=== PATIENT | male | born 1975 | race Caucasian/White ===

== ENCOUNTER 2016-08-28 10:32 | Emergency (ER) | payer OTHER ==
[~2016-08-28] VITALS: Ht 167.6 cm; Wt 65.0 kg
[2016-08-28 10:32] VITALS: Ht 167.6 cm; Wt 65.0 kg
[2016-08-28 11:37] LABS: BASOPHILS % 0.6 % (0.0-2.0); EOSINOPHILS # 0.2 10^3/ul (0.0-0.5); EOSINOPHILS % 3.4 % (0.0-7.0); HEMATOCRIT 45.9 % (42.0-52.0); HEMOGLOBIN 15.6 g/dl (14.0-18.0); LYMPHOCYTES # 2.4 10^3/ul (0.8-2.9); LYMPHOCYTES % 39.6 % (15.0-51.0); MEAN CORPUSCULAR HEMOGLOBIN 32.6 pg (29.0-33.0); MEAN CORPUSCULAR VOLUME 96.1 fl (82.0-101.0); MONOCYTE # 0.5 10^3/ul (0.3-0.9); MONOCYTES % 7.6 % (0.0-11.0); NEUTROPHIL # 2.9 10^3/ul (1.6-7.5); NEUTROPHILS % 48.8 % (39.0-77.0); PLATELET COUNT 329 10^3/UL (140-440); RED BLOOD COUNT 4.77 10^6/ul (4.70-6.10); RED CELL DISTRIBUTION WIDTH 14.6 % (11.5-14.5)
[2016-08-28 11:39] LABS: CONDITION 1; LH ANALYZER COMMENTS 1
[2016-08-28 11:44] LABS: ALBUMIN 4.4 g/dl (3.3-4.9)
[2016-08-28 11:46] LABS: BILIRUBIN,INDIRECT 0.2 mg/dl (0-1.1); BILIRUBIN,TOTAL 0.2 mg/dl (0.2-1.3); CREATININE 0.79 mg/dl (0.61-1.24)
[2016-08-28 11:47] LABS: ALBUMIN/GLOBULIN RATIO 1.1; CALCIUM 8.6 mg/dl (8.4-10.2); TOTAL PROTEIN 8.4 g/dl (6.1-8.1)
[2016-08-28] MEDS ORDERED: PHENYTOIN 1,000 MG in SOD CHLORIDE 0.9% 100 ML IV ONE (12:30)
--- NOTE | 2016-08-28 13:29 | ERD ---
ER Documentation Chief Complaint Date/Time DATE: 08/28/16 TIME: 1045 Chief Complaint Patient MICHELLE with complant of ETOH use HPI 41-year-old male presents to the emergency department by ambulance. Patient is a poor historian as he appears to be intoxicated. According to the ambulance, patient had a witnessed grand mal seizure that was self-limited with no trauma. Patient states that instead of taking his antiseizure medications, he has been drinking alcohol. He has no other complaints at this time including no complaints of headache or focal weakness or difficulty speaking. 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 Pre-hospital vital signs were reviewed. Pre-hospital diagnostic tests were reviewed. ROS All systems reviewed and are negative except as per history of present illness. Medications Home Meds Active Scripts Phenytoin* Sodium Extended (Dilantin*) 300 Mg Capsule, 300 MG PO HS, #90 CAP Prov:PHYLLIS REEDER 08/28/16 Allergies Allergies: Coded Allergies: Unable to Assess (Verified Allergy, Severe, 08/28/16) FmHx Noncontributory for chief complaint Physical Exam Vitals Vital Signs Date Time Temp Pulse Resp B/P Pulse Ox O2 Delivery O2 Flow Rate FiO2 08/28/16 10:32 98.3 80 20 125/79 99 Physical Exam GENERAL: The patient is well developed and appropriate for usual state of health in no apparent distress, patient is intoxicated with alcohol HEENT: Pupils equal, round, and reactive to light. EOMI. There is no scleral icterus. NECK: C-spine is soft and supple, there is no meningismus. There is no cervical lymphadenopathy. LUNGS: Clear to auscultation bilaterally. There are no rales, wheezes or rhonchi. HEART: Regular rate and rhythm, no murmurs, clicks, rubs or gallops. ABDOMEN: Soft, non-tender, non-distended. There are bowel sounds in all four quadrants. No rebound or guarding. EXTREMITIES: There is no peripheral cyanosis or edema. No focal swelling or erythema. NEURO: The patient moves all four extremities with 5/5 strength. Cranial nerves II - XII are intact. Normal gait. Alert and oriented, slurred speech SKIN: There is no apparent rash or petechiae. HEME/LYMPHATIC: There is no evidence of excessive bruising or lymphedema. PSYCHIATRIC: The patient does not appear anxious or depressed. Result Diagram: 08/28/16 1130 08/28/16 1130 Results 24 hrs Laboratory Tests Test 08/28/16 11:30 Alanine Aminotransferase (ALT/SGPT) 170IU/L Albumin 4.4g/dl Albumin/Globulin Ratio 1.10 Alkaline Phosphatase 75IU/L Anion Gap 22 Aspartate Amino Transf (AST/SGOT) 129IU/L Basophils # 0.010^3/ul Basophils % 0.6% Blood Morphology Comment Blood Urea Nitrogen 9mg/dl Calcium Level 8.6mg/dl Carbon Dioxide Level 25mmol/L Chloride Level 109mmol/L Creatinine 0.79mg/dl Direct Bilirubin 0.00mg/dl Eosinophils # 0.210^3/ul Eosinophils % 3.4% Ethyl Alcohol Level 443.0mg/dl Globulin 4.00g/dl Glucose Level 90mg/dl Hematocrit 45.9% Hemoglobin 15.6g/dl Indirect Bilirubin 0.2mg/dl Lymphocytes # 2.410^3/ul Lymphocytes % 39.6% Mean Corpuscular Hemoglobin 32.6pg Mean Corpuscular Hemoglobin Concent 34.0g/dl Mean Corpuscular Volume 96.1fl Mean Platelet Volume 7.0fl Monocytes # 0.510^3/ul Monocytes % 7.6% Neutrophils # 2.910^3/ul Neutrophils % 48.8% Nucleated Red Blood Cells # 0.010^3/ul Nucleated Red Blood Cells % 0.0/100WBC Phenytoin (Dilantin) Level < 3.0ug/ml Platelet Count 04991^3/UL Potassium Level 4.0mmol/L Red Blood Count 4.7710^6/ul Red Cell Distribution Width 14.6% Sodium Level 152mmol/L Total Bilirubin 0.2mg/dl Total Protein 8.4g/dl White Blood Count 6.010^3/ul Current Medications Medications (Trade) Dose Ordered Sig/Roger Route PRN Reason Start Time Stop Time Status Last Admin Dose Admin Phenytoin 1000 mg/ Sodium Chloride 120 ml @ 240 mls/hr ONCE ONCE IV 08/28/16 12:30 08/28/16 12:59 DC 08/28/16 13:02 Sodium Chloride (NS) 500 ml @ 500 mls/hr Q1H ONCE IV 08/28/16 13:30 08/28/16 14:29 08/28/16 13:08 Procedures/MDM Patient was taken to a room, seen and evaluated. Comfort measures were initiated. Diagnostic tests were ordered and reviewed. 3 LEAD RHYTHM STRIP: [Normal sinus rhythm without ectopy] REEVALUATION: Patient remains seizure-free. After the patient's Dilantin level was noted to be negative, he was loaded with a gram of IV Dilantin. He remained hemodynamically stable. MEDICAL DECISION MAKIN-year-old male presents the emergency department after questionable seizure. At this time, his seizure seems to be related to noncompliance with seizure medications and more importantly is a significant alcohol intoxication. At this time, he demonstrates no signs of trauma. Patient will be maintained under observation until such time as he is sober enough for safe discharge can be arranged. Currently however he is comfortable , hemodynamically stable and will be maintained under observation. Departure Diagnosis: Primary Impression: Alcoholic intoxication Condition: Stable Patient Instructions: Alcohol Intoxication Additional Instructions: Stop drinking alcohol. Take your seizure medication PHYLLIS REEDER Aug 28, 2016 13:29
[2016-08-28] MEDS ORDERED: SOD CHLORIDE 0.9% 500 ML IV ONE (13:30)
[2016-08-28] MEDS ORDERED: PHEN300C2 PO (13:30)
[2016-08-28 14:29] VITALS: BP 136/74; PULSE 86; RESP 20; TEMP 98.3
== END 2016-08-28 13:28 | disposition home or self-care (01) ==
LOC: E/R 10:32
DX: F10.129 Alcohol abuse with intoxication, unspecified (principal); R40.2142 Coma scale, eyes open, spontaneous, at arrival to emergency department; R40.2252 Coma scale, best verbal response, oriented, at arrival to emergency department; R40.2362 Coma scale, best motor response, obeys commands, at arrival to emergency department
CPT/HCPCS: 80053; 80185; 85025; G0478; J1165; J7040; 80306; 96374